=== PATIENT | female | born 1975 | race Caucasian/White ===

== ENCOUNTER 2024-10-23 05:59 | Day surgery (SDC) | payer OTHER ==
[~2024-10-23] VITALS: Ht 165.1 cm; Wt 68.0 kg
[~2024-10-23 05:59] MED LIST: CALCIUM + VITA1 EACH PO; LACTATED RINGER'S 1,000 ML IV SCH; METHYL B-12500 MCG PO; ONE DAILY WOME1 EACH PO; OXYBUTYNIN CHLOR5 M1 PO; ZYRTEC10 MG PO; [UNRECOGNIZED DRUG - OTHER] PO
[2024-10-23 06:10] VITALS: BP 129/84
[2024-10-23] MEDS ORDERED: LIDOCAINE HCL 1% 5 ML SDV INJ ONE (07:00)
[2024-10-23] MEDS ORDERED: IBLOOD GLUCOSE TEST STRIP 1 EA TEST VI PRN ×2 (07:00→09:15)
[2024-10-23] MEDS ORDERED: BUPIVACAINE 0.75% IN DEXTROSE 2 ML AMP ONE (07:15)
[2024-10-23] MEDS ORDERED: MIDAZOLAM HCL 2 MG/2 ML VIAL ONE (07:15)
[2024-10-23] MEDS ORDERED: LIDOCAINE HCL 2% 5 ML SDV ONE (07:15)
--- NOTE | 2024-10-23 07:30 | NUR ---
PT NOT AVAILABLE FOR VISIT. PROVIDED PRAYER.
[2024-10-23] MEDS ORDERED: KETOROLAC TROMETHAMINE 30 MG/ML VIAL ONE (07:57)
--- NOTE | 2024-10-23 09:08 | NUR ---
10/23/24 0908 Marianne King 0901: PT ARRIVES TO PACU AWAKE AND TALKING WITH OR STAFF. REPORT RECEIEVED FROM [employer] MACHINE FEEDER AND SECURITIES ADVISER. JACKELINE 0905: DR. FRIAS IS AT THE BEDSIDE TALKING WITH THE PT. SHE HAS NO COMPLAINTS OF PAIN. SHE HAS A LOT OF QUESTIONS.
[2024-10-23] MEDS ORDERED: fentaNYL citrate 50 MCG/ML SDV IV PRN (09:15)
[2024-10-23] MEDS ORDERED: NALOXONE HCL 0.4 MG SYR IV PRN ×2 (09:15)
[2024-10-23] MEDS ORDERED: OXYCODONE/APAP 5/325 TAB PO PRN (09:15)
[2024-10-23] MEDS ORDERED: PROCHLORPERAZINE EDISYLATE 10 MG/2 ML VIAL IV PRN (09:15)
[2024-10-23] MEDS ORDERED: FAMOTIDINE 20 MG/ 2 ML VIAL IV PRN (09:15)
[2024-10-23 09:27] VITALS: BP 111/6
[2024-10-23] MEDS ORDERED: SIMETHICONE 80 MG CHEW PO SCH (13:00)
--- NOTE | 2024-10-26 23:23 | OR ---
[address] [address] Signed DATE OF OPERATION: 10/23/2024 SURGEON: Lilliana Rees DO PREOPERATIVE DIAGNOSIS: Bilateral hypertrophy of labia minora. POSTOPERATIVE DIAGNOSIS: Bilateral hypertrophy of labia minora. PROCEDURES PERFORMED: 1. Bilateral labiaplasty. 2. Perineorrhaphy. ANESTHESIA: Saddle with conscious sedation. ESTIMATED BLOOD LOSS: 5 mL. SPECIMENS: None. DRAINS: None. PACKING: None. FINDINGS: Bilateral hypertrophy of the labia minora, left greater than right, and redundancy and laxity of the perineum. Otherwise normal vagina and external genitalia. Hemostasis and normal anatomic appearance at the end of the procedure. COMPLICATIONS: None. INDICATIONS: Ms. Alvarado is a very pleasant 48-year-old female who complains of symptomatic hypertrophy of the labia minora with pain, tugging and discomfort with exercise movement, clothing Electronically Signed By: LILLIANA REES DO (JD) 10/26/24 2323 PATIENT NAME: ZACK ALVARADO OPERATIVE REPORT DATE OF : 79 REPORT #: [id number] PHYSICIAN: LILLIANA REES DO (JD) PCP: TAMMIE INGRAM PA-C REPORT IS CONFIDENTIAL AND NOT TO BE RELEASED WITHOUT AUTHORIZATION [address] [address] Signed and intimacy. Recommended bilateral labiaplasty with perineorrhaphy. Risks, benefits, and alternatives were discussed in detail with the patient. The patient understands and wished to proceed with the procedure. DESCRIPTION OF PROCEDURE: The patient was taken to the OR where a time-out was performed to confirm correct patient and procedure. A saddle block with conscious sedation was performed providing adequate anesthetic. The patient was prepped and draped in the dorsal lithotomy position with feet in Yellofin stirrups. ICPs were on and running and no preoperative antibiotics or heparin was indicated. Careful preoperative evaluation of the anatomy was performed and the skin was marked at the proposed excision margins. 0.25% Marcaine with epinephrine was infiltrated bilaterally. Needlepoint cautery was then used to perform excision of excess labial tissue following the premarked line. This excised the entire pigmented area of the labia and the excessive perineal skin. The perineorrhaphy was then performed by excising an inverted triangle area of skin. Meticulous hemostasis was performed using needlepoint cautery to ensure hemostasis of the labia. The incision site was then carefully reapproximated with many multiple sutures of 3-0 Vicryl Rapide with excellent hemostasis and cosmesis. The perineorrhaphy was repaired using 2-0 Vicryl in the standard fashion. Excellent hemostasis and cosmesis was appreciated. The patient was then taken to the PACU in good and stable condition. Sponge, needle, and instrument counts correct x2 at the end of the procedure. DO JENNY Mcdowell/ANTONIO /[id number] Copies: ~ Electronically Signed By: LILLIANA REES DO (JD) 10/26/24 2323 PATIENT NAME: ZACK ALVARADO LUIS OPERATIVE REPORT DATE OF : 79 REPORT #: [id number] PHYSICIAN: LILLIANA REES (WILLIAM) PCP: TAMMIE INGRAM PA-C REPORT IS CONFIDENTIAL AND NOT TO BE RELEASED WITHOUT AUTHORIZATION
== END 2024-10-23 09:43 | disposition home or self-care (01) ==
LOC: OPS 05:59 → DS 05:59 → OPS 07:30 → DS 07:30 → OPS 09:43
PROVIDERS: ATTEND Obstetrics & Gynecology
PROC: 0HB9XZZ Excision of Perineum Skin, External Approach (ICD-10-PCS; 2024-10-23)
PROC: 0UBMXZZ Excision of Vulva, External Approach (ICD-10-PCS; principal; 2024-10-23 07:30)
DX: N90.69 Other specified hypertrophy of vulva (principal); N81.89 Other female genital prolapse; J30.2 Other seasonal allergic rhinitis; Z79.899 Other long term (current) drug therapy; Z88.1 Allergy status to other antibiotic agents; Z88.2 Allergy status to sulfonamides; Z97.5 Presence of (intrauterine) contraceptive device
CPT/HCPCS: J1885; J2003; J2250; J2405; J2704; J7121